=== PATIENT | female | born 1955 | race Caucasian/White ===

== ENCOUNTER → 2018-02-15 13:37 | Outpatient (CLI) | payer OTHER, SELFPAY ==
--- NOTE | 2018-02-15 | DI.MRI.S_ITS ---
PROCEDURE: MR ANKLE LT WO CON INDICATIONS: PERONEAL TENDINITIS LEFT LEG TECHNIQUE: Noncontrast sagittal T1 spin echo and T2 fast spin echo with fat saturation, axial proton density fast spin echo and T2 fast spin echo with fat saturation, coronal T1 spin echo and T2 fast spin echo with fat saturation through the ankle/hindfoot. COMPARISON: [facility], MR, ANKLE WITHOUT CONTRAST, 07/30/2017, 9:36. FINDINGS: Image quality: Excellent. Bones and joints: No bone marrow contusions or fractures. Postsurgical changes present with screw tracts seen in the calcaneus related to Achilles tendon repair. No hindfoot coalitions. No osteochondral injuries of the talar dome. No pathologic joint effusions. Medial structures: The posterior tibialis, flexor digitorum longus, and flexor hallucis longus tendons are intact. There is trace fluid adjacent to the posterior tibialis tendon although this finding is quite subtle. The posterior tibial neurovascular bundle appears normal within the tarsal tunnel, without extrinsic mass effect. The deep layer (anterior and posterior tibiotalar ligaments) and superficial layer (tibionavicular, tibiospring, and tibiocalcaneal ligaments) of the deltoid ligament appear normal. The spring ligament components (superomedial calcaneonavicular, medioplantar oblique calcaneonavicular, and inferoplantar longitudinal ligaments) are intact. Lateral structures: The anterior talofibular, calcaneofibular, and posterior talofibular ligaments appear intact. More superiorly, the anterior and posterior tibiofibular ligaments appear intact, as is the intermalleolar ligament. The tibiofibular syndesmosis is normal in width at 2 mm or less. The peroneus longus tendon appears intact. There is thickening and intrasubstance signal change involving the peroneus brevis tendon with a possible small longitudinal tear at the tip of the lateral malleolus image 34 series 8.. Adjacent bony peroneal tubercle and retrotrochlear prominence are normal in size. The sinus tarsi demonstrates normal fatty signal, without edema, fibrosis, or cyst formation. Visualized sinus tarsi components (cervical ligament, interosseous talocalcaneal ligament, roots of the inferior extensor retinaculum) appear normal. The calcaneonavicular and calcaneocuboid components of the bifurcate ligament appear intact. The dorsal calcaneocuboid ligament appears intact. Anterior structures: The tibialis anterior, extensor hallucis longus, and extensor digitorum longus tendons appear intact. The dorsal talonavicular ligament appears intact. Posterior and plantar structures: Achilles tendon is thickened although in signal. This could represent postoperative change and/or chronic tendinosis. Medial and lateral bands of the plantar fascia are of normal thickness. No abductor digiti quinti muscle atrophy to suggest Lott neuropathy. IMPRESSION: Interval postsurgical changes related to Achilles tendon repair. Residual thickening of the distal tendon could be postoperative appearance and/or chronic tendinosis. Trace fluid adjacent to the posterior tibialis tendon raises the possibility of low-grade tenosynovitis (unchanged since the prior study), however recommend clinical correlation since the MR appearance is subtle. Peroneus brevis tendinopathy, thickening and possible small longitudinal tear at the tip of the lateral malleolus. This finding appears grossly unchanged since the prior study dated 07/30/17. Dictated by: Jose Angel Faria M.D. on 02/15/2018 at 13:56 Approved by: Jose Angel Faria M.D. on 02/15/2018 at 14:09
== END ==
PROVIDERS: PCP Podiatrist; Visit Provider Podiatrist
DX: M76.71 Peroneal tendinitis, right leg (principal)
CPT/HCPCS: 73721

== ENCOUNTER 2018-04-24 08:19 | Day surgery (SDC) | payer OTHER, SELFPAY ==
[2018-04-15 10:38] VITALS: BMI 36.5
[2018-04-24 09:00] VITALS: BP 151/80; PULSE 85; RESP 16; TEMP 36.4; O2SAT 97; BMI 36.3
[2018-04-24] MEDS: LACTATED RINGERS 1,000 ML 42 ML IV (09:28)
--- NOTE | 2018-04-24 09:51 | PM.PREOP ---
Pre-operative Note Interval Note Pre-op Check: Yes History & Physical Reviewed by Physician Changes: No
[2018-04-24] MEDS: CLINDAMYCIN 600 MG/50 ML PIGGYBACK 50 MG IV (10:00)
--- NOTE | 2018-04-24 10:25 | SUR.OPER ---
Supine on padded OR bed, head on pillow, arms secured on padded arm boards at <90 degrees abduction, legs uncrossed, safety belt at thigh, tape over blanket over lower legs.
[2018-04-24] MEDS: BUPIVACAINE 0.5% (PF) VIAL 30 ML INJ (10:31)
[2018-04-24 11:15] VITALS: BP 154/98; PULSE 80; RESP 20; TEMP 36.3; O2SAT 95
[2018-04-24 11:20] VITALS: BP 154/98; PULSE 82; RESP 20; TEMP 36.3; O2SAT 94
--- NOTE | 2018-04-24 11:22 | PM.OP.1 ---
Operative Date/Time/Diagnoses Date of procedure: 04/24/18 Time of procedure: 11:22 Pre-op diagnosis: Left peroneal tendonitis with tear Post-op diagnosis: same Procedure & Clinicians Procedure: Left peroneal tendon repair Same procedure as scheduled: Yes Indications: Painful peroneal tendonitis with suspected tear Surgeon: Pat Salazar Click Yes if Unassisted: Yes Anesthesia Type: General Operative Notes Closure Type: primary Specimen(s): none sent Implants & Drains: Ticron, Vicryl suture Estimated Blood Loss (mL): 20 Blood products transfused: none Procedure in detail: The patient was brought to the operating room and placed on the operating table in the supine position. The tourniquet was placed about the thigh. Well padded appropriately aligned. After induction of general anesthesia the foot and ankle were prepped and draped in the usual aseptic manner. The tourniquet was inflated. Incision was made over the lateral ankle just distal to the lateral malleolus. The incision was deepened through subcutaneous tissues being careful to identify and retract all vital neural and vascular structures. All bleeders were cauterized and ligated as necessary. IA entered the peroneal tendon complex and upon examination is thought that the peroneus brevis had a small longitudinal split measuring a few cm. This was about 1/8 of entire tendon so was decided to excise this split. I looked along the remainder of this as well as the longus and I did not see any other areas of tears although they did in general looks a little bit thicker. After the excision of that fragment of the tendon that had torn I used a curette to smooth down the edges of the tendon and the area was irrigated with copious amounts of normal sterile saline. The repair was made with the thickened section of tendon sheath within the peroneal shared sheath to allow for restablishment of the gliding on the edge of the peroneus brevis. Used here was a mixture of Ticron and vicryl. The sheath was then repaired with vicryl. The tourniquet was deflated and prompt hyperemic response seen to the foot and ankle. Vicryl was used for deep and subcutaneous closure and nylon for the skin. The ankle was dressed with a sterile lightly compressive dressing consisting of Adaptic 4x4s Kerlix, EFREN and stockinette she was placed in her postsurgical boot. She was transferred to the PACU with vital signs stable and vascular status intact. Complications: none Condition: stable Disposition: PACU Plan for aftercare: Following a period of postoperative monitoring, the patient be discharged home on written and oral postop instructions including keeping the dressing dry and intact, avoiding ambulation to the foot, elevating the foot was seated home. DVT prevention techniques have been reviewed. She is to start her Lovenox injections tomorrow as a short course as previously instructed. Her 1st postoperative visit will be a dressing change and we will assess the timing on suture removal which can be between the 10th to 21st day. Feel comfortable with her beginning ambulation partially at 3 week period and moving toward physical therapy.
[2018-04-24 11:30] VITALS: BP 165/92; PULSE 81; RESP 12; TEMP 36.2; O2SAT 94
[2018-04-24 11:37] VITALS: BP 170/90; PULSE 82; RESP 94; TEMP 36.1
== END 2018-04-24 12:11 | disposition home or self-care (01) ==
PROVIDERS: PCP Podiatrist; Visit Provider Podiatrist
PROC: (CPT 27658; principal; 2018-04-24 09:45)
DX: M76.72 Peroneal tendinitis, left leg (principal); F17.210 Nicotine dependence, cigarettes, uncomplicated; E11.9 Type 2 diabetes mellitus without complications; Z79.84 Long term (current) use of oral hypoglycemic drugs; E66.9 Obesity, unspecified; E07.9 Disorder of thyroid, unspecified; M76.822 Posterior tibial tendinitis, left leg; M72.2 Plantar fascial fibromatosis; M25.872 Other specified joint disorders, left ankle and foot
CPT/HCPCS: 27658; J1100; J2250; J2405; J2704; J3010

== ENCOUNTER → 2019-03-12 08:48 | Outpatient (CLI) | payer OTHER, SELFPAY ==
--- NOTE | 2019-03-12 | DI.MRI.S_ITS ---
PROCEDURE: MR ANKLE LT WO CON INDICATIONS: Achilles tendinitis, left leg TECHNIQUE: Noncontrast sagittal T1 spin echo and T2 fast spin echo with fat saturation, axial proton density fast spin echo and T2 fast spin echo with fat saturation, coronal T1 spin echo and T2 fast spin echo with fat saturation through the ankle/hindfoot. COMPARISON: [facility], MR, MR ANKLE LT WO CON, 02/15/2018, 13:48. FINDINGS: Image quality: Excellent. Bones and joints: Postsurgical changes in posterior calcaneus at the distal Achilles insertion is seen. No gross marrow edema. No fracture or dislocation. No hindfoot coalitions. No osteochondral injuries of the talar dome. No pathologic joint effusions. Medial structures: The posterior tibialis, flexor digitorum longus, and flexor hallucis longus tendons are intact. The posterior tibial neurovascular bundle appears normal within the tarsal tunnel, without extrinsic mass effect. The deep layer (anterior and posterior tibiotalar ligaments) and superficial layer (tibionavicular, tibiospring, and tibiocalcaneal ligaments) of the deltoid ligament appear normal. The spring ligament components (superomedial calcaneonavicular, medioplantar oblique calcaneonavicular, and inferoplantar longitudinal ligaments) are intact. Lateral structures: The anterior talofibular, calcaneofibular, and posterior talofibular ligaments appear intact. More superiorly, the anterior and posterior tibiofibular ligaments appear intact, as is the intermalleolar ligament. The tibiofibular syndesmosis is normal in width at 2 mm or less. The peroneus longus and brevis tendons demonstrate normal location and morphology. Adjacent bony peroneal tubercle and retrotrochlear prominence are normal in size. The sinus tarsi demonstrates normal fatty signal, without edema, fibrosis, or cyst formation. Visualized sinus tarsi components (cervical ligament, interosseous talocalcaneal ligament, roots of the inferior extensor retinaculum) appear normal. The calcaneonavicular and calcaneocuboid components of the bifurcate ligament appear intact. The dorsal calcaneocuboid ligament appears intact. Anterior structures: The tibialis anterior, extensor hallucis longus, and extensor digitorum longus tendons appear intact. The dorsal talonavicular ligament appears intact. Posterior and plantar structures: Thickened distal Achilles tendon at its insertion on the posterior calcaneus is seen, likely represent post surgical changes. Underlying distal Achilles tendinosis and low-grade intrasubstance partial thickness tear cannot be entirely excluded. Rest of the Achilles tendon is intact. Medial and lateral bands of the plantar fascia are of normal thickness. No abductor digiti quinti muscle atrophy to suggest Lott neuropathy. IMPRESSION: 1. Interval resolution of previously noted marrow edema throughout mid foot tarsal bones. No fracture or dislocation is seen on the current study. No gross marrow edema. Post surgical changes are again noted in posterior calcaneus. 2. There is mild thickening of distal Achilles tendon at its insertion of posterior calcaneus with mildly heterogeneous T2 hyperintense signal and mild surrounding edema is significantly improved since previous study suggestive of mild residual distal Achilles tendinosis/low-grade partial-thickness tear. No full-thickness Achilles tendon rupture. 3. Rest of ankle tendons and ligaments are intact. Dictated by: Eulogio Ochoa M.D. on 03/12/2019 at 11:24 Approved by: Eulogio Ochoa M.D. on 03/12/2019 at 11:34
== END ==
PROVIDERS: PCP Podiatrist; Visit Provider Podiatrist
DX: M76.62 Achilles tendinitis, left leg (principal)
CPT/HCPCS: 73721

== ENCOUNTER → 2023-11-12 12:03 | Outpatient (CLI) | payer OTHER, SELFPAY ==
--- NOTE | 2023-11-12 | DI.MRI.S_ITS ---
PROCEDURE: MR ANKLE LT WO CON INDICATIONS: peroneal tendinitis left leg TECHNIQUE: Noncontrast sagittal T1 spin echo and T2 fast spin echo with fat saturation, axial proton density fast spin echo and T2 fast spin echo with fat saturation, coronal T1 spin echo and T2 fast spin echo with fat saturation through the ankle/hindfoot. COMPARISON: [facility], MR, MR ANKLE LT WO CON, 03/12/2019, 9:18. FINDINGS: Image quality: Excellent. Bones and joints: Postsurgical changes are noted in posterior calcaneus from prior Achilles tendon repair. Susceptibility artifacts are noted in posterior calcaneus. There is no acute fracture or dislocation. Mild marrow edema involving medial cuneiform proximal portion is seen without discrete fracture line. Mild midfoot and hindfoot joint osteoarthritic changes also seen with joint space narrowing and subchondral sclerosis. No hindfoot coalitions. No osteochondral injuries of the talar dome. Small tibiotalar joint effusion is seen, no gross loose bodies. Medial structures: The posterior tibialis, flexor digitorum longus, and flexor hallucis longus tendons are intact. The posterior tibial neurovascular bundle appears normal within the tarsal tunnel, without extrinsic mass effect. The deep layer (anterior and posterior tibiotalar ligaments) and superficial layer (tibionavicular, tibiospring, and tibiocalcaneal ligaments) of the deltoid ligament appear normal. The spring ligament components (superomedial calcaneonavicular, medioplantar oblique calcaneonavicular, and inferoplantar longitudinal ligaments) are intact. Lateral structures: The anterior talofibular, calcaneofibular, and posterior talofibular ligaments appear mildly thickened. More superiorly, the anterior and posterior tibiofibular ligaments appear intact, as is the intermalleolar ligament. The tibiofibular syndesmosis is normal in width at 2 mm or less. The peroneus longus and brevis tendons are markedly thickened at the level of lateral malleolus extending to the level of TMT joints with moderate amount of fluid distending tendon sheath. The sinus tarsi demonstrates normal fatty signal, without edema, fibrosis, or cyst formation. Visualized sinus tarsi components (cervical ligament, interosseous talocalcaneal ligament, roots of the inferior extensor retinaculum) appear normal. The calcaneonavicular and calcaneocuboid components of the bifurcate ligament appear intact. The dorsal calcaneocuboid ligament appears intact. Anterior structures: The tibialis anterior, extensor hallucis longus, and extensor digitorum longus tendons appear intact. The dorsal talonavicular ligament appears intact. Posterior and plantar structures: Distal Achilles tendon is mildly thickened at its posterior calcaneal insertion likely represent postsurgical changes. No Achilles tendon rupture.. Medial and lateral bands of the plantar fascia are of normal thickness. No abductor digiti quinti muscle atrophy to suggest Lott neuropathy. IMPRESSION: 1. Prior Achilles tendon repair with likely postsurgical thickening of distal Achilles tendon. No Achilles tendon rupture. 2. Mild midfoot and hindfoot joint osteoarthritis. Likely bony contusion involving proximal portion of medial cuneiform. No fracture or dislocation. No osteochondral injuries of talar dome. Small joint effusion, no gross loose bodies. 3. Moderate grade tenosynovitis involving peroneus tendons at the level of lateral malleolus extending to the level of TMT joints. 4. Low-grade sprain/intrasubstance partial-thickness tear involving anterior and posterior talofibular ligaments and calcaneofibular ligament. Dictated by: Eulogio Ochoa M.D. on 11/12/2023 at 16:26 Approved by: Eulogio Ochoa M.D. on 11/12/2023 at 16:29
== END ==
PROVIDERS: Referring Provider Podiatrist; Visit Provider Podiatrist
DX: M76.72 Peroneal tendinitis, left leg (principal); M19.072 Primary osteoarthritis, left ankle and foot; M65.872 Other synovitis and tenosynovitis, left ankle and foot; S93.412A Sprain of calcaneofibular ligament of left ankle, initial encounter; S93.492A Sprain of other ligament of left ankle, initial encounter; M25.475 Effusion, left foot
CPT/HCPCS: 73721

== ENCOUNTER → 2025-07-09 13:31 | Outpatient (CLI) | payer OTHER, SELFPAY ==
--- NOTE | 2025-07-09 13:34 | DI.RAD.S_ITS ---
PROCEDURE: XR DEXA AXIAL SKELETON INDICATIONS: Postmenopausal Screening COMPARISON: None. FINDINGS: Lumbar Spine: Bone mineral density 1.225 g/cm2, T score 1.6. Left Femoral Neck: Bone mineral density 0.613 g/cm2, T score -2.1. Left Hip: Bone mineral density 0.746 g/cm2, T score -1.6. Fracture Risk Calculation (when applicable): 10-year fracture risk of a major osteoporotic fracture 21 percent and of a hip fracture 8.3 percent. (T score greater or equal to -1.0 to: NORMAL) (T score from -1.1 to -2.4: OSTEOPENIA) (T score less than or equal to -2.5: OSTEOPOROSIS) IMPRESSION: Osteopenia with increased 10 year fracture risk as above. Follow-up guidelines as follows: Osteoporosis: Consider a repeat DEXA and Vertebral Fracture Assessment (VFA) exam in 2 years or sooner if medically necessary, to reassess this patient's status. Osteopenia: Consider a repeat DEXA in 2-3 years to reassess this patient's status, or if there is a new clinical indication. Normal: Consider a repeat DEXA in 5 years or sooner, or if there is a new clinical indication. All treatment decisions require clinical judgment and consideration of individual patient factors, including patient preferences, comorbidities, previous drug use, risk factors not captured in the FRAX model (e.g., frailty, falls, vitamin D deficiency, increased bone turnover, interval significant decline in bone density ) and possible under- or over-estimation of fracture risk by FRAX. In addition, the NOF Guide recommends that FDA-approved medical therapies be considered in postmenopausal women and men age >= 50 years with a: * Hip or vertebral (clinical or morphometric) fracture * T-score of <=-2.5 at the spine or hip * Ten-year fracture probability by FRAX of >= 3% for hip fracture or >=20% for major osteoporotic fracture. Dictated by: Eulogio Ochoa M.D. on 07/09/2025 at 20:59 Approved by: Eulogio Ochoa M.D. on 07/09/2025 at 21:00
== END ==
PROVIDERS: PCP Student in an Organized Health Care Education/Training Program; Referring Provider Student in an Organized Health Care Education/Training Program; Visit Provider Student in an Organized Health Care Education/Training Program
DX: Z01.89 Encounter for other specified special examinations (principal); M85.89 Other specified disorders of bone density and structure, multiple sites
CPT/HCPCS: 77080